=== PATIENT | female | born 1990 | race Caucasian/White ===

== ENCOUNTER 2019-09-21 12:15 | Emergency (ER) | payer MEDICAID ==
[2019-09-21] MEDS ORDERED: Cyclobenzaprine 10 MG Tab ONE (13:00)
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
--- NOTE | 2019-09-22 08:48 | CR ---
DATE OF SERVICE: 09/21/2019 CLINICAL DATA: back pain LUMBAR SPINE: There is minimal right convexity scoliosis of the lower lumbar spine. The vertebral bodies are of average height. No acute fracture or dislocation. There is slight narrowing of the L4-5 disc space. The disc spaces are otherwise intact. No lytic or blastic bone lesions. [id number] [facility]
== END 2019-09-21 14:00 | disposition home or self-care (01) ==
LOC: LB.ED 12:15
DX: S39.012A Strain of muscle, fascia and tendon of lower back, initial encounter (principal); Z88.8 Allergy status to other drugs, medicaments and biological substances; W00.0XXA Fall on same level due to ice and snow, initial encounter
CPT/HCPCS: 72100; 99283-25; A9270-GY

== ENCOUNTER 2020-04-15 17:47 | Emergency (ER) | payer MEDICAID, OTHER ==
[2020-04-15] MEDS ORDERED: HYDROmorphone 2 MG/ML SDV IVPUSH ONE ×2 (17:54→20:56)
[2020-04-15] MEDS ORDERED: diazePAM 5 MG/ML MDV IV ONE (18:25)
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
--- NOTE | 2020-04-15 20:55 | PCM.SN.2 ---
- Free Text/Narrative Note: applied long leg splint to left leg, patient tolerated well. CMS remains intact with present pedal pulses.
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
== END 2020-04-15 22:45 ==
LOC: LB.ED 17:47
DX: S82.142A Displaced bicondylar fracture of left tibia, initial encounter for closed fracture (principal); S82.832A Other fracture of upper and lower end of left fibula, initial encounter for closed fracture; S80.02XA Contusion of left knee, initial encounter; S40.812A Abrasion of left upper arm, initial encounter; S70.212A Abrasion, left hip, initial encounter; Z88.8 Allergy status to other drugs, medicaments and biological substances; Z90.49 Acquired absence of other specified parts of digestive tract; V28.9XXA Unspecified motorcycle rider injured in noncollision transport accident in traffic accident, initial encounter; Z20.828 Contact with and (suspected) exposure to other viral communicable diseases
CPT/HCPCS: 29505; 73501; 73562; 73600; 87635; 96374; 96375; 99284; J1170; J3360; 99285; U0002

== ENCOUNTER 2021-11-19 16:02 | Emergency (ER) | payer MEDICAID ==
[2021-11-19] MEDS: Ketorolac 30 MG/ML SDV IM ONE (17:57)
[2021-11-19] MEDS: Ketorolac 30 MG/ML SDV ONE (17:58)
== END 2021-11-19 18:41 | disposition home or self-care (01) ==
LOC: LB.ED 16:02
DX: S80.02XA Contusion of left knee, initial encounter (principal); V86.92XA Unspecified occupant of snowmobile injured in nontraffic accident, initial encounter
CPT/HCPCS: 73560-LT; 96372; 99282; 99283-25; J1885

== ENCOUNTER 2022-02-07 11:29 | Emergency (ER) | payer MEDICAID ==
[2022-02-07] MEDS: Ketorolac 30 MG/ML SDV IM ONE (12:03)
[2022-02-07] MEDS: Ketorolac 30 MG/ML SDV ONE (12:05)
[2022-02-07 12:18] VITALS: BP 132/81; PULSE 92
== END 2022-02-07 12:50 | disposition home or self-care (01) ==
LOC: LB.ED 11:29
DX: S83.412A Sprain of medial collateral ligament of left knee, initial encounter (principal); Z88.8 Allergy status to other drugs, medicaments and biological substances; W18.30XA Fall on same level, unspecified, initial encounter
CPT/HCPCS: 73560; 96372; 99283; J1885; 99282

== ENCOUNTER 2024-01-22 20:11 | Emergency (ER) | payer MEDICAID ==
[2024-01-22] MEDS: Morphine 4 MG/ML VIAL IVPUSH ONE (20:48)
[2024-01-22 21:00] LABS: HEMATOCRIT 30.6 % (37.0-47.0); HEMOGLOBIN 9.4 g/dL (11.5-16.5); MEAN CORPUSCULAR HEMOGLOBIN 24.2 pg (27.0-32.0); MEAN CORPUSCULAR HGB CONC 30.7 g/dL (31.0-35.0); MEAN PLATELET VOLUME 10.9 fL (6.0-10.0); RED BLOOD CELL COUNT 3.89 M/uL (3.80-5.80); RED CELL DISTRIBUTION WIDTH 17.4 % (11.0-16.0); WHITE BLOOD CELL COUNT,WBC 12.7 K/uL (4.0-11.0)
[2024-01-22 21:01] LABS: APPEARANCE,URINE CLEAR (CLEAR); BILIRUBIN,URINE NEGATIVE (NEGATIVE); COLOR,URINE YELLOW; GLUCOSE,URINE NEGATIVE (NEGATIVE); KETONES,URINE NEGATIVE (NEGATIVE); LEUKOCYTE ESTERASE,URINE NEGATIVE (NEGATIVE); NITRITE,URINE NEGATIVE (NEGATIVE); OCCULT BLOOD,URINE NEGATIVE (NEGATIVE); PROTEIN,URINE NEGATIVE (NEGATIVE); UROBILINOGEN,URINE 0.2 E.U./dL (0.2-1.0)
[2024-01-22 21:13] LABS: A/G RATIO 1.2 (0.8-2.0); ALBUMIN 3.4 g/dL (3.4-5.0); ANION GAP 9.6 mmol/L (5.0-15.0); BILIRUBIN TOTAL 0.1 mg/dL (0.0-1.0); BUN/CREATININE RATIO 14.8 (6-25); CALCIUM 8.4 mg/dL (8.5-10.1); CARBON DIOXIDE,CO2 29.6 mmol/L (21.0-32.0); CREATININE 0.81 mg/dL (0.55-1.02); EST CRCL DRUG DOSING (CG) 97.86 mL/min; POTASSIUM,K 4.2 mmol/L (3.5-5.1); PROTEIN TOTAL,TP 6.3 g/dL (6.4-8.2)
[2024-01-22] MEDS: Morphine 4 MG/ML VIAL ONE (21:18)
[2024-01-22] MEDS: Sodium Chloride 0.9% 1,000 ML IV SCH (21:18)
[2024-01-22] MEDS: Sodium Chloride 0.9% 50 ML SDV FLUSH ONE (21:47)
[2024-01-22] MEDS: Iopamidol 612 MG/ML 100 ML Bottle IV SCH (21:47)
[2024-01-22] MEDS: Ketorolac 30 MG/ML SDV IVPUSH ONE (22:18)
[2024-01-22] MEDS: Levofloxacin/Dextrose 5%-Water 500 MG in Levofloxacin/Dextrose 5%-Water 100 ML IV ONE (22:22)
[2024-01-22] MEDS: Ketorolac 30 MG/ML SDV ONE (22:27)
[2024-01-22] MEDS: Levofloxacin/Dextrose 5%-Water 100 ML IV ONE (22:38)
[2024-01-22] MEDS: HYDROmorphone 2 MG/ML Syringe IVPUSH ONE (22:52)
[2024-01-22] MEDS: HYDROmorphone 2 MG/ML Syringe ONE (23:28)
[2024-01-22] MEDS: Sodium Phosphate,Monobasic/Sodium Phosphate,Dibasic Enema 133 ML Bottle RECTAL ONE (23:34)
[2024-01-23] MEDS: metroNIDAZOLE 500 MG Tab PO ONE (00:17)
[2024-01-23] MEDS: Sodium Phosphate,Monobasic/Sodium Phosphate,Dibasic Enema 133 ML Bottle RECTAL ONE (00:19)
[2024-01-23] MEDS: HYDROmorphone 2 MG/ML Syringe ONE (01:22)
[2024-01-23] MEDS: HYDROmorphone 2 MG/ML Syringe IVPUSH ONE (01:23)
[2024-01-23] MEDS: LORazepam 2 MG/ML SDV IVPUSH ONE (01:54)
[2024-01-23] MEDS: Orphenadrine 60 MG/2 ML Inj IM ONE (01:56)
[2024-01-23] MEDS: LORazepam 2 MG/ML SDV ONE (01:59)
[2024-01-23] MEDS: Orphenadrine 60 MG/2 ML Inj ONE (03:01)
== END 2024-01-23 03:10 | disposition home or self-care (01) ==
LOC: LB.ED 20:11
DX: R10.30 Lower abdominal pain, unspecified (principal); D72.828 Other elevated white blood cell count; Z79.899 Other long term (current) drug therapy; Z88.8 Allergy status to other drugs, medicaments and biological substances
CPT/HCPCS: 36415; 74177; 80053; 81003; 83690; 84702; 85027; 96361; 96365; 96372; 96375; 96376; 99284; A9270; J1170; J1885; J1956; J2060; J2270; J2360; J3490; J7030; Q9967

== ENCOUNTER 2024-01-24 09:35 | Observation (INO) | payer MEDICAID ==
[2024-01-24] MEDS ORDERED: Sodium Chloride 0.9% 10 ML Syringe FLUSH PRN (09:42)
[2024-01-24 10:07] LABS: HEMATOCRIT 30.2 % (37.0-47.0); HEMOGLOBIN 9.5 g/dL (11.5-16.5); MEAN CORPUSCULAR HEMOGLOBIN 24.4 pg (27.0-32.0); MEAN CORPUSCULAR HGB CONC 31.5 g/dL (31.0-35.0); MEAN PLATELET VOLUME 10.9 fL (6.0-10.0); RED BLOOD CELL COUNT 3.89 M/uL (3.80-5.80); RED CELL DISTRIBUTION WIDTH 17.2 % (11.0-16.0); WHITE BLOOD CELL COUNT,WBC 11.3 K/uL (4.0-11.0)
[2024-01-24 10:13] LABS: A/G RATIO 1.2 (0.8-2.0); ALANINE AMINOTRANSFERASE,ALT 23 U/L (12-78); ALBUMIN 3.6 g/dL (3.4-5.0); ALKALINE PHOSPHATASE 36 U/L (46-116); ANION GAP 11.4 mmol/L (5.0-15.0); ASPARTATE AMNIOTRANSFERASE,AST 20 U/L (15-37); BILIRUBIN TOTAL 0.4 mg/dL (0.0-1.0); BLOOD UREA NITROGEN,BUN 6 mg/dL (8-26); BUN/CREATININE RATIO 7.2 (6-25); C-REACTIVE PROTEIN <0.50 mg/L (<5.0); CALCIUM 8.6 mg/dL (8.5-10.1); CARBON DIOXIDE,CO2 28.6 mmol/L (21.0-32.0); CHLORIDE,CL 105 mmol/L (98-107); CREATININE 0.83 mg/dL (0.55-1.02); EST CRCL DRUG DOSING (CG) 91.94 mL/min; ESTIMATED GFR 97 mL/min (>60); GLUCOSE RANDOM 90 mg/dL (74-100); PROTEIN TOTAL,TP 6.7 g/dL (6.4-8.2); SODIUM,NA 141 mmol/L (136-145)
[2024-01-24] MEDS: fentaNYL 100 MCG/2 ML SDV IVPUSH PRN (10:18)
[2024-01-24 10:21] LABS: LACTIC ACID 1.1 mmol/L (0.4-2.0)
[2024-01-24] MEDS: DULoxetine 30 MG Cap**OWN MED PO SCH (11:39)
[2024-01-24] MEDS: METRONIDAZOLE 500 MG PO SCH (11:40)
[2024-01-24] MEDS: Pantoprazole 40 MG Tab.CR**OWN MED PO SCH (11:41)
[2024-01-24] MEDS: Doxycycline 100 MG Cap**OWN MED PO SCH (11:41)
[2024-01-24] MEDS: SUCRALFATE 1 GM PO SCH (11:42)
[2024-01-24] MEDS: Polyethylene Glycol 3350 Powder 17 GM Packet PO SCH (11:56)
[2024-01-24] MEDS: Docusate Sodium 100 MG Cap PO SCH (11:56)
[2024-01-24] MEDS: Sodium Chloride 0.9% 1,000 ML IV SCH (11:57)
[2024-01-24 11:58] LABS: APPEARANCE,URINE CLEAR (CLEAR); BILIRUBIN,URINE NEGATIVE (NEGATIVE); COLOR,URINE YELLOW; GLUCOSE,URINE NEGATIVE (NEGATIVE); KETONES,URINE 15 mg/dL (NEGATIVE); LEUKOCYTE ESTERASE,URINE NEGATIVE (NEGATIVE); NITRITE,URINE NEGATIVE (NEGATIVE); OCCULT BLOOD,URINE NEGATIVE (NEGATIVE); PH,URINE 7.5 (5.0-8.0); PROTEIN,URINE NEGATIVE (NEGATIVE); UROBILINOGEN,URINE 0.2 E.U./dL (0.2-1.0)
[2024-01-24] MEDS: Doxycycline 100 MG Cap PO SCH (12:01)
[2024-01-24] MEDS: Sucralfate 1 GM Tab PO SCH (12:02)
[2024-01-24] MEDS: metroNIDAZOLE 500 MG Tab PO SCH (12:02)
[2024-01-24] MEDS: Ketorolac 30 MG/ML SDV IVPUSH PRN (16:40)
[2024-01-24] MEDS: Morphine 4 MG/ML VIAL IVPUSH ONE (18:07)
[2024-01-24] MEDS: Ondansetron 4 MG Tab.DIS PO PRN (18:22)
[2024-01-24] MEDS: Magnesium Citrate Solution 296 ML Bottle PO ONE (18:32)
[2024-01-24] MEDS ORDERED: DULoxetine 30 MG Cap PO SCH (20:00)
[2024-01-24] MEDS: Acetaminophen/HYDROcodone 325-5 MG Tab PO PRN (21:56)
[2024-01-25] MEDS ORDERED: Pantoprazole 40 MG Tab.CR PO SCH (08:00)
[2024-01-25] MEDS: traMADol 50 MG Tab PO PRN (10:00)
[2024-01-25] MEDS: Acetaminophen 325 MG Tab PO PRN (13:06)
== END 2024-01-26 10:01 | disposition home or self-care (01) ==
LOC: UNDOADMOB 09:35 → LB.MS 09:35
PROVIDERS: ADMIT Surgery; ATTEND Surgery
DX: R10.30 Lower abdominal pain, unspecified (principal); K59.00 Constipation, unspecified; N83.201 Unspecified ovarian cyst, right side; N83.202 Unspecified ovarian cyst, left side; Z79.899 Other long term (current) drug therapy; Z98.890 Other specified postprocedural states
CPT/HCPCS: 36415; 80053; 81003; 83605; 84145; 85027; 86140; 96374; 96375; 96376; A9270; G0378; G0379; J1885; J2270; J3010; J7030; Q0162; 99222; 99232; 99238

== ENCOUNTER 2024-03-19 20:21 | Emergency (ER) | payer MEDICAID ==
[2024-03-19] MEDS: Sodium Chloride 0.9% 1,000 ML IV ONE (21:00)
[2024-03-19] MEDS: HYDROmorphone 2 MG/ML Syringe IVPUSH ONE (21:00)
[2024-03-19] MEDS: HYDROmorphone 2 MG/ML Syringe ONE (21:01)
[2024-03-19 21:27] LABS: A/G RATIO 1.3 (0.8-2.0); ALANINE AMINOTRANSFERASE,ALT 19 U/L (12-78); ALBUMIN 3.7 g/dL (3.4-5.0); ALKALINE PHOSPHATASE 50 U/L (46-116); ANION GAP 10.8 mmol/L (5.0-15.0); ASPARTATE AMNIOTRANSFERASE,AST 10 U/L (15-37); BILIRUBIN TOTAL 0.2 mg/dL (0.0-1.0); BLOOD UREA NITROGEN,BUN 8 mg/dL (8-26); BUN/CREATININE RATIO 9.1 (6-25); CALCIUM 8.2 mg/dL (8.5-10.1); CARBON DIOXIDE,CO2 28.9 mmol/L (21.0-32.0); CHLORIDE,CL 103 mmol/L (98-107); CREATININE 0.88 mg/dL (0.55-1.02); ESTIMATED GFR 90 mL/min (>60); GLUCOSE RANDOM 83 mg/dL (74-100); POTASSIUM,K 3.7 mmol/L (3.5-5.1); PROTEIN TOTAL,TP 6.5 g/dL (6.4-8.2); SODIUM,NA 139 mmol/L (136-145)
[2024-03-19 21:28] LABS: BASOPHILS ABSOLUTE AUTO 0.03 K/uL (0.02-0.10); BASOPHILS PERCENT AUTO 0.3 % (0.0-0.5); EOSINOPHILS ABSOLUTE AUTO 0.19 K/uL (0.04-0.40); EOSINOPHILS PERCENT AUTO 1.8 % (1.0-5.0); HEMATOCRIT 35.5 % (37.0-47.0); HEMOGLOBIN 11.7 g/dL (11.5-16.5); LYMPHOCYTES ABSOLUTE AUTO 3.77 K/uL (1.50-4.00); LYMPHOCYTES PERCENT AUTO 35.6 % (20.0-40.0); MEAN CORPUSCULAR HEMOGLOBIN 27.8 pg (27.0-32.0); MEAN CORPUSCULAR VOLUME 84 fL (76-96); MONOCYTES ABSOLUTE AUTO 1.05 K/uL (0.20-0.80); MONOCYTES PERCENT AUTO 9.9 % (3.0-10.0); NEUTROPHILS ABSOLUTE AUTO 5.55 K/uL (2.00-7.50); NEUTROPHILS PERCENT AUTO 52.4 % (45.0-70.0); PLATELET COUNT,PLT 247 K/uL (150-500); RED BLOOD CELL COUNT 4.21 M/uL (3.80-5.80); RED CELL DISTRIBUTION WIDTH 22.7 % (11.0-16.0); WHITE BLOOD CELL COUNT,WBC 10.6 K/uL (4.0-11.0)
[2024-03-19] MEDS: Ketorolac 30 MG/ML SDV IVPUSH ONE (22:05)
[2024-03-19 22:12] LABS: APPEARANCE,URINE CLEAR (CLEAR); BILIRUBIN,URINE NEGATIVE (NEGATIVE); COLOR,URINE YELLOW; GLUCOSE,URINE NEGATIVE (NEGATIVE); KETONES,URINE NEGATIVE (NEGATIVE); LEUKOCYTE ESTERASE,URINE NEGATIVE (NEGATIVE); NITRITE,URINE NEGATIVE (NEGATIVE); OCCULT BLOOD,URINE NEGATIVE (NEGATIVE); PROTEIN,URINE NEGATIVE (NEGATIVE); UROBILINOGEN,URINE 0.2 E.U./dL (0.2-1.0)
[2024-03-19] MEDS: Ketorolac 30 MG/ML SDV ONE (22:12)
[2024-03-19 22:14] LABS: RBC,URINE 0-5 /HPF; WBC,URINE 0-5 /HPF
[2024-03-19] MEDS ORDERED: Acetaminophen/HYDROcodone 325-5 MG Tab ONE (22:20)
== END 2024-03-19 22:25 | disposition home or self-care (01) ==
LOC: LB.ED 20:21
DX: N80.C0 Endometriosis of the abdomen, unspecified (principal); Z79.899 Other long term (current) drug therapy; Z88.8 Allergy status to other drugs, medicaments and biological substances
CPT/HCPCS: 36415; 74176; 80053; 81001; 83605; 85025; 96361; 96374; 96375; 99284; J1170; J1885; J7030; A9270-GY

== ENCOUNTER 2024-07-29 18:17 | Emergency (ER) | payer BC ==
[2024-07-29] MEDS: Ketorolac 30 MG/ML SDV IM ONE (18:56)
[2024-07-29] MEDS: Ketorolac 30 MG/ML SDV ONE (19:21)
[2024-07-29] MEDS ORDERED: Acetaminophen/HYDROcodone 325-5 MG Tab ONE (19:30)
[2024-07-29] MEDS ORDERED: Naloxone 2 MG/2 ML Syringe IVPUSH PRN (19:31)
[2024-07-29] MEDS: Ondansetron 4 MG Tab.DIS PO ONE (19:36)
[2024-07-29] MEDS: HYDROmorphone 1 MG/ML Syringe SUBCUT ONE (19:36)
[2024-07-29] MEDS: Ondansetron 4 MG Tab.DIS ONE (19:39)
[2024-07-29] MEDS: HYDROmorphone 2 MG/ML Syringe ONE (19:39)
== END 2024-07-29 19:53 | disposition home or self-care (01) ==
LOC: LB.ED 18:17
DX: K58.1 Irritable bowel syndrome with constipation (principal); N80.9 Endometriosis, unspecified; F17.200 Nicotine dependence, unspecified, uncomplicated; Z79.899 Other long term (current) drug therapy; Z88.8 Allergy status to other drugs, medicaments and biological substances
CPT/HCPCS: 74019; 96372; 99284; A9270; J1171; J1885; Q0162

== ENCOUNTER 2024-08-11 12:22 | Emergency (ER) | payer BC ==
[2024-08-11] MEDS ORDERED: Naloxone 2 MG/2 ML Syringe IVPUSH PRN (12:43)
[2024-08-11] MEDS: HYDROmorphone 2 MG/ML Syringe IVPUSH ONE (12:50)
[2024-08-11] MEDS: Ondansetron 4 MG/2 ML SDV IVPUSH ONE (12:50)
[2024-08-11 12:57] LABS: BASOPHILS ABSOLUTE AUTO 0.03 K/uL (0.02-0.10); BASOPHILS PERCENT AUTO 0.2 % (0.0-0.5); EOSINOPHILS ABSOLUTE AUTO 0.13 K/uL (0.04-0.40); EOSINOPHILS PERCENT AUTO 0.8 % (1.0-5.0); HEMATOCRIT 41.7 % (37.0-47.0); HEMOGLOBIN 13.6 g/dL (11.5-16.5); LYMPHOCYTES ABSOLUTE AUTO 1.36 K/uL (1.50-4.00); LYMPHOCYTES PERCENT AUTO 8.1 % (20.0-40.0); MEAN CORPUSCULAR HEMOGLOBIN 29.4 pg (27.0-32.0); MEAN CORPUSCULAR HGB CONC 32.6 g/dL (31.0-35.0); MEAN CORPUSCULAR VOLUME 90 fL (76-96); MEAN PLATELET VOLUME 10.6 fL (6.0-10.0); MONOCYTES PERCENT AUTO 10.1 % (3.0-10.0); NEUTROPHILS ABSOLUTE AUTO 13.57 K/uL (2.00-7.50); NEUTROPHILS PERCENT AUTO 80.8 % (45.0-70.0); PLATELET COUNT,PLT 248 K/uL (150-500); RED BLOOD CELL COUNT 4.62 M/uL (3.80-5.80); RED CELL DISTRIBUTION WIDTH 13.4 % (11.0-16.0); WHITE BLOOD CELL COUNT,WBC 16.8 K/uL (4.0-11.0)
[2024-08-11 13:11] LABS: A/G RATIO 1.1 (0.8-2.0); ALANINE AMINOTRANSFERASE,ALT 30 U/L (12-78); ALKALINE PHOSPHATASE 54 U/L (46-116); ANION GAP 10.5 mmol/L (5.0-15.0); ASPARTATE AMNIOTRANSFERASE,AST 11 U/L (15-37); BILIRUBIN TOTAL 0.3 mg/dL (0.0-1.0); BLOOD UREA NITROGEN,BUN 9 mg/dL (8-26); BUN/CREATININE RATIO 10.2 (6-25); CHLORIDE,CL 101 mmol/L (98-107); CREATININE 0.88 mg/dL (0.55-1.02); ESTIMATED GFR 89 mL/min (>60); GLUCOSE RANDOM 69 mg/dL (74-100); POTASSIUM,K 3.5 mmol/L (3.5-5.1); PROTEIN TOTAL,TP 7.6 g/dL (6.4-8.2); SODIUM,NA 140 mmol/L (136-145)
[2024-08-11] MEDS: Sodium Chloride 0.9% 1,000 ML IV ONE (13:51)
[2024-08-11 13:54] LABS: APPEARANCE,URINE CLEAR (CLEAR); BILIRUBIN,URINE NEGATIVE (NEGATIVE); COLOR,URINE YELLOW; GLUCOSE,URINE NEGATIVE (NEGATIVE); KETONES,URINE NEGATIVE (NEGATIVE); OCCULT BLOOD,URINE NEGATIVE (NEGATIVE); PROTEIN,URINE NEGATIVE (NEGATIVE)
[2024-08-11 13:55] LABS: AMORPHOUS SEDIMENT,URINE OCCASIONAL /HPF; LEUKOCYTE ESTERASE,URINE NEGATIVE (NEGATIVE); MUCUS,URINE FEW /HPF; NITRITE,URINE NEGATIVE (NEGATIVE); RBC,URINE NOT SEEN /HPF; SQUAMOUS EPITHELIAL CELLS,UR FEW /HPF; UROBILINOGEN,URINE 0.2 E.U./dL (0.2-1.0); WBC,URINE NOT SEEN /HPF
[2024-08-11] MEDS ORDERED: Sodium Chloride 0.9% 10 ML Syringe FLUSH PRN (14:33)
== END 2024-08-11 15:00 | disposition home or self-care (01) ==
LOC: LB.ED 12:22
DX: R10.32 Left lower quadrant pain (principal); Z90.89 Acquired absence of other organs; Z88.8 Allergy status to other drugs, medicaments and biological substances; Z79.899 Other long term (current) drug therapy
CPT/HCPCS: 36415; 80053; 81001; 85025; 96361; 96374; 96375; 99284; J1171; J2405; J7030

== ENCOUNTER 2024-10-03 18:47 | Emergency (ER) | payer BC ==
[2024-10-03] MEDS ORDERED: Naloxone 2 MG/2 ML Syringe IVPUSH PRN (19:56)
[2024-10-03] MEDS: Sodium Chloride 0.9% 1,000 ML IV ONE (20:05)
[2024-10-03] MEDS: Ondansetron 4 MG/2 ML SDV IVPUSH ONE (20:09)
[2024-10-03] MEDS: HYDROmorphone 2 MG/ML Syringe IVPUSH ONE (20:12)
[2024-10-03 20:17] LABS: BASOPHILS ABSOLUTE AUTO 0.01 K/uL (0.02-0.10); BASOPHILS PERCENT AUTO 0.1 % (0.0-0.5); EOSINOPHILS ABSOLUTE AUTO 0.27 K/uL (0.04-0.40); EOSINOPHILS PERCENT AUTO 2.1 % (1.0-5.0); HEMATOCRIT 36.1 % (37.0-47.0); HEMOGLOBIN 11.7 g/dL (11.5-16.5); LYMPHOCYTES ABSOLUTE AUTO 3.16 K/uL (1.50-4.00); LYMPHOCYTES PERCENT AUTO 24.6 % (20.0-40.0); MEAN CORPUSCULAR HEMOGLOBIN 29.3 pg (27.0-32.0); MEAN CORPUSCULAR HGB CONC 32.4 g/dL (31.0-35.0); MEAN CORPUSCULAR VOLUME 90 fL (76-96); MEAN PLATELET VOLUME 11.3 fL (6.0-10.0); MONOCYTES ABSOLUTE AUTO 1.35 K/uL (0.20-0.80); MONOCYTES PERCENT AUTO 10.5 % (3.0-10.0); NEUTROPHILS ABSOLUTE AUTO 8.08 K/uL (2.00-7.50); NEUTROPHILS PERCENT AUTO 62.7 % (45.0-70.0); PLATELET COUNT,PLT 272 K/uL (150-500); RED CELL DISTRIBUTION WIDTH 14.6 % (11.0-16.0); WHITE BLOOD CELL COUNT,WBC 12.9 K/uL (4.0-11.0)
[2024-10-03 20:29] LABS: LIPASE 24 U/L (16-77); MAGNESIUM 1.7 mg/dL (1.8-2.4)
[2024-10-03 20:31] LABS: A/G RATIO 1.1 (0.8-2.0); ALBUMIN 3.5 g/dL (3.4-5.0); ANION GAP 10.8 mmol/L (5.0-15.0); BILIRUBIN TOTAL 0.2 mg/dL (0.0-1.0); BUN/CREATININE RATIO 6.5 (6-25); CALCIUM 8.5 mg/dL (8.5-10.1); CARBON DIOXIDE,CO2 30.4 mmol/L (21.0-32.0); CREATININE 0.93 mg/dL (0.55-1.02); EST CRCL DRUG DOSING (CG) 81.3 mL/min; POTASSIUM,K 4.2 mmol/L (3.5-5.1); PROTEIN TOTAL,TP 6.6 g/dL (6.4-8.2)
[2024-10-03 20:35] LABS: APPEARANCE,URINE CLEAR (CLEAR); BACTERIA,URINE OCCASIONAL /HPF; BILIRUBIN,URINE NEGATIVE (NEGATIVE); COLOR,URINE YELLOW; GLUCOSE,URINE NEGATIVE (NEGATIVE); KETONES,URINE NEGATIVE (NEGATIVE); LEUKOCYTE ESTERASE,URINE TRACE (NEGATIVE); NITRITE,URINE NEGATIVE (NEGATIVE); OCCULT BLOOD,URINE NEGATIVE (NEGATIVE); PROTEIN,URINE NEGATIVE (NEGATIVE); RBC,URINE NOT SEEN /HPF; SQUAMOUS EPITHELIAL CELLS,UR FEW /HPF; UROBILINOGEN,URINE 0.2 E.U./dL (0.2-1.0); WBC,URINE 0-5 /HPF
[2024-10-03 20:44] LABS: C-REACTIVE PROTEIN < 5.0 mg/L (<5.0)
[2024-10-03] MEDS: Sodium Chloride 0.9% 50 ML SDV FLUSH SCH (21:10)
[2024-10-03] MEDS: Iopamidol 612 MG/ML 100 ML Bottle IV PRN (21:10)
[2024-10-03] MEDS ORDERED: Acetaminophen/HYDROcodone 325-5 MG Tab ONE (22:00)
[2024-10-03] MEDS ORDERED: LORazepam 1 MG Tab ONE (22:00)
[2024-10-03] MEDS: LORazepam 1 MG Tab ONE (23:26)
[2024-10-03] MEDS: diazePAM 5 MG/ML MDV IV ONE (23:27)
== END 2024-10-03 22:20 | disposition home or self-care (01) ==
LOC: LB.ED 18:47
DX: R10.31 Right lower quadrant pain (principal); R10.32 Left lower quadrant pain; Z88.8 Allergy status to other drugs, medicaments and biological substances; Z79.899 Other long term (current) drug therapy; Z90.710 Acquired absence of both cervix and uterus
CPT/HCPCS: 36415; 74177; 80053; 81001; 83605; 83690; 83735; 85025; 86140; 96361; 96374; 96375; 96376; 99284; 99284-25; A9270-GY; J1171; J2405; J3360; J3490; J7030; Q9967

== ENCOUNTER 2024-12-25 19:21 | Emergency (ER) | payer MEDICAID ==
[2024-12-25] MEDS: Sodium Chloride 0.9% 1,000 ML IV ONE (20:00)
[2024-12-25] MEDS: HYDROmorphone 1 MG/ML Syringe IVPUSH ONE ×3 (20:03→22:10)
[2024-12-25] MEDS: Ondansetron 4 MG/2 ML SDV IVPUSH ONE ×2 (20:07→22:12)
[2024-12-25 20:12] LABS: BASOPHILS ABSOLUTE AUTO 0.04 K/uL (0.02-0.10); BASOPHILS PERCENT AUTO 0.3 % (0.0-0.5); EOSINOPHILS ABSOLUTE AUTO 0.14 K/uL (0.04-0.40); EOSINOPHILS PERCENT AUTO 1.1 % (1.0-5.0); HEMATOCRIT 39.3 % (37.0-47.0); HEMOGLOBIN 13.2 g/dL (11.5-16.5); LYMPHOCYTES ABSOLUTE AUTO 3.59 K/uL (1.50-4.00); LYMPHOCYTES PERCENT AUTO 29.5 % (20.0-40.0); MEAN CORPUSCULAR HEMOGLOBIN 29.7 pg (27.0-32.0); MEAN CORPUSCULAR HGB CONC 33.6 g/dL (31.0-35.0); MEAN CORPUSCULAR VOLUME 88 fL (76-96); MEAN PLATELET VOLUME 10.8 fL (6.0-10.0); MONOCYTES ABSOLUTE AUTO 1.02 K/uL (0.20-0.80); MONOCYTES PERCENT AUTO 8.4 % (3.0-10.0); NEUTROPHILS PERCENT AUTO 60.7 % (45.0-70.0); PLATELET COUNT,PLT 314 K/uL (150-500); RED BLOOD CELL COUNT 4.45 M/uL (3.80-5.80); RED CELL DISTRIBUTION WIDTH 14.5 % (11.0-16.0); WHITE BLOOD CELL COUNT,WBC 12.2 K/uL (4.0-11.0)
[2024-12-25 20:28] LABS: LIPASE 19 U/L (16-77)
[2024-12-25 20:30] LABS: A/G RATIO 1.1 (0.8-2.0); ALBUMIN 3.6 g/dL (3.4-5.0); ANION GAP 2.6 mmol/L (5.0-15.0); BILIRUBIN TOTAL 0.5 mg/dL (0.0-1.0); BUN/CREATININE RATIO 9.2 (6-25); CALCIUM 8.7 mg/dL (8.5-10.1); CREATININE 0.87 mg/dL (0.55-1.02); EST CRCL DRUG DOSING (CG) 86.9 mL/min; POTASSIUM,K 3.6 mmol/L (3.5-5.1)
[2024-12-25] MEDS ORDERED: Naloxone 2 MG/2 ML Syringe IVPUSH PRN (20:36)
[2024-12-25 20:47] LABS: C-REACTIVE PROTEIN < 5.0 mg/L (<5.0)
[2024-12-25 20:49] LABS: APPEARANCE,URINE CLEAR (CLEAR); BILIRUBIN,URINE NEGATIVE (NEGATIVE); COLOR,URINE YELLOW; GLUCOSE,URINE NEGATIVE (NEGATIVE); LEUKOCYTE ESTERASE,URINE NEGATIVE (NEGATIVE); NITRITE,URINE NEGATIVE (NEGATIVE); OCCULT BLOOD,URINE NEGATIVE (NEGATIVE); PROTEIN,URINE NEGATIVE (NEGATIVE); RBC,URINE 0-5 /HPF; SQUAMOUS EPITHELIAL CELLS,UR FEW /HPF; UROBILINOGEN,URINE 0.2 E.U./dL (0.2-1.0)
[2024-12-25 20:50] LABS: MUCUS,URINE FEW /HPF
[2024-12-25] MEDS: Ketorolac 15 MG/ML SDV IVPUSH ONE (20:56)
[2024-12-25] MEDS: HYDROmorphone 2 MG/ML Syringe IVPUSH ONE (21:24)
[2024-12-25] MEDS: LORazepam 2 MG/ML SDV IVPUSH ONE (21:28)
[2024-12-26 10:07] LABS: KETONES,URINE 15 mg/dL (NEGATIVE)
== END 2024-12-25 22:14 ==
LOC: LB.ED 19:21
DX: R10.30 Lower abdominal pain, unspecified (principal); Z88.8 Allergy status to other drugs, medicaments and biological substances; Z79.899 Other long term (current) drug therapy
CPT/HCPCS: 36415; 74176; 80053; 81001; 83690; 85025; 86140; 96361; 96374; 96375; 96376; 99285; J1171; J1885; J2060; J2405; J7030